=== PATIENT | male | born 2000 | race Two or more races ===

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

== ENCOUNTER 2021-01-18 18:11 | Emergency (ER) | payer MEDICAID, SELFPAY ==
[2021-01-18 18:58] VITALS: BP 119/58; PULSE 116; RESP 16; TEMP 36.9; O2SAT 100; BMI 16.9
--- NOTE | 2021-01-18 19:03 | ED_ITS ---
HPI - Wound/Laceration General Chief Complaint: Animal Bite Stated Complaint: finger lac Source: patient Mode of arrival: ambulatory Limitations: no limitations History of Present Illness HPI narrative: 20-year-old male presents with dog bite to the left 5th finger. His 3-month-old puppy bit his hand accidentally. Onset (ago): hour(s) (Within the hour of arrival) Extremity Location: left: hand (Fifth finger) Place: home Patient tetanus UTD: No Context: accidental Associated symptoms: none Related Data Previous Rx's Medication Instructions Recorded amoxicillin 875 mg-potassium 1 tab PO Q12H 10 Days #20 tab 01/18/21 clavulanate 125 mg tablet (Augmentin) Allergies Allergy/AdvReac Type Severity Reaction Status Date / Time No Known Allergies Allergy Verified 01/18/21 19:16 Review of Systems Review of Systems: Constitutional: No Fever, No Chills ENT/Mouth: No Ear Pain, No Hoarseness, No sore throat Eyes: No Eye Pain, No Swelling, No Redness, No Foreign Body Cardiovascular: No Chest Pain, No SOB Respiratory: No Cough, No Dyspnea Gastrointestinal: No Nausea, No Vomiting, No Diarrhea, No abdominal Pain Genitourinary: No Dysuria, No Hematuria Musculoskeletal: positive left 5th finger pain, No Myalgias, No Joint Swelling Skin: Positive finger laceration, No rash Neuro: No Weakness, No Numbness, No Paresthesias, No Loss of Consciousness, No Dizziness, No Headache Psych: No Anxiety/Panic, No Depression Heme/Lymph: no easy bruising, no Lymphadenopathy Endocrine: No Polyuria, No Polydipsia Yes all other systems are reviewed and are negative [facility] Past Medical History Attestation statement: The following information was validated with the patient. Source: old records reviewed Medical History No known health problems Social History Social History Advance Directives: No Advance Directives Information Provided: Yes Physical Exam Vital Signs: Vital Signs: Last Vital Signs Temp 98.4 F 01/18/21 18:58 Pulse 116 H 01/18/21 18:58 Resp 16 01/18/21 18:58 BP 119/58 L 01/18/21 18:58 Pulse Ox 100 01/18/21 18:58 BMI result Body Mass Index 16.9 Appearance: Alert. Oriented X3. No acute distress. Eyes: Pupils equal, round and reactive to light. ENT: Pharynx normal. Neck: Normal inspection. Neck supple. CVS: Normal heart rate and rhythm. Pulses normal. Respiratory: No respiratory distress. Breath sounds normal. Abdomen: Soft and nontender. Skin: Skin warm and dry. Normal skin color. Normal skin turgor. Extremities: Full range of motion and brisk capillary refill to all digits. 0.5 cm laceration to the pad of the 5th finger tip. Neuro: No motor deficit. No sensory deficit. Cranial nerves 2-12 intact. Course Course Course Narrative: 20-year-old male presents with a laceration to his 5th left finger from his 3-month-old puppy. Puppy has been properly vaccinated, and is not old enough for rabies series. Low likelihood of rabies contact at this time. Patient does not want rabies series. Laceration cleaned and dressed with topical antibiotic ointment and dry sterile dressing. Will give Augmentin and Tdap vaccine at this time. No further action is required patient patient does have full range of motion and brisk capillary refill to all digits. Patient verbalized understanding of and agrees to plan of care discharge home. MDM - Wound/Laceration Differential Diagnosis Differential diagnosis: Likely laceration Medical Records Attestation: I reviewed the patient's medical records. Discharge Plan Discharge Clinical Impression: Dog bite Patient Disposition: Home, Self-Care Instructions: Animal Bite (ED) Additional Instructions: You were evaluated for a dog bite. Your puppy has been properly vaccinated. Please take Augmentin antibiotics as directed. Please complete the entire course of medication. Thank you for choosing this emergency department for evaluation. Please follow-up with primary care physician as needed. Return to the emergency department for any new, concerning, or worsening symptoms. Prescriptions: New amoxicillin-pot clavulanate [Augmentin] 875-125 mg tablet 1 tab PO Q12H 10 Days Qty: 20 RF: 0 Interventions: ED Discharge Assessment Last Done: 01/18/21 20:20 Discharge Date/Time: 01/18/21 20:25
[2021-01-18] MEDS: Amoxicillin/Potassium Clav 875 MG TABLET PO (19:39)
[2021-01-18] MEDS: Diphth,Pertus(ACell),Tet Adult 0.5 ML SYRINGE IM (19:39)
--- NOTE | 2021-01-18 20:17 | PC.NURSE ---
PT LIVES WITH DOG AND THE DOG WILL BE WATCHED AT HOME FOR S/SX OF RABIES. DOG IS A PUPPY AND WAS PLAYFUL AND IS WELL WITH NO SIGN OF AGGRESSION OR SICKNESS AND DOES NOT GO OUTSIDE ON OWN. PT IS TOO YOUNG FOR RABIES VACCINE AT THIS TIME ANIMAL CONTROL REPORT FILLED AND FAXED.
== END 2021-01-18 20:25 | disposition home or self-care (01) ==
PROVIDERS: Emergency Provider Internal Medicine
DX: S61.217A Laceration without foreign body of left little finger without damage to nail, initial encounter (principal); W54.0XXA Bitten by dog, initial encounter; Y93.9 Activity, unspecified; Y92.009 Unspecified place in unspecified non-institutional (private) residence as the place of occurrence of the external cause; Y99.9 Unspecified external cause status
CPT/HCPCS: 90471; 90715; 99284

== ENCOUNTER 2021-04-02 16:49 | Emergency (ER) | payer MEDICAID, SELFPAY ==
--- NOTE | ~2021-04-02 | XR_ITS ---
EXAMINATION: XR CHEST CLINICAL INFORMATION: Fever COMPARISON: None TECHNIQUE: Frontal view of the chest was obtained. FINDINGS: No significant abnormality is noted involving the heart, lungs, mediastinum, bony thorax or soft tissues. XR/XR chest 1V IMPRESSION: Unremarkable examination.
--- NOTE | 2021-04-02 18:44 | ED.GENADULT ---
HPI - General Adult General Chief complaint: General Medical Stated complaint: fever/body aches/chills Time Seen by Provider: 04/02/21 18:31 Source: patient Mode of arrival: ambulatory Limitations: no limitations History of Present Illness HPI narrative: Patient comes to the emergency room of 1 day body aches, fever and chills. Patient denies nausea vomiting or diarrhea. Patient complaining of sore throat. Related Data Previous Rx's Medication Instructions Recorded amoxicillin 875 mg-potassium 1 tab PO Q12H 10 Days #20 tab 01/18/21 clavulanate 125 mg tablet (Augmentin) ibuprofen 600 mg tablet 600 mg PO TID PRN #20 tab 04/02/21 Allergies Allergy/AdvReac Type Severity Reaction Status Date / Time No Known Allergies Allergy Verified 01/18/21 19:16 Review of Systems Review of Systems: Insert review of Constitutional : No Weight loss, complaining of fever, chills, generalized malaise ENT/Mouth : No Hearing loss, No Ear Pain, No Nasal Congestion, No Sinus Pain, No Hoarseness, complaining of mild sore throat, No Rhinorrhea, No Swallowing Difficulty Eyes: No Eye Pain, No Swelling, No Redness, No Foreign Body, No Discharge, No Vision Changes Cardiovascular : No Chest Pain, No SOB, No Dyspnea on Exertion, No Orthopnea, No Edema, No Palpitations Respiratory : No Cough, No Sputum, No Wheezing, No Smoke Exposure, No Dyspnea Gastrointestinal : No Nausea, No Vomiting, No Diarrhea, No Constipation, No abdominal Pain, No Hematochezia, No Melena Genitourinary : no irregular bleeding, No Dysuria, No Urinary Frequency, No Hematuria, No Urinary Incontinence, No Urgency, No Flank Pain, No Urinary Flow Changes, No Hesitancy Musculoskeletal : No joint pain, No Myalgias, No Joint Swelling Skin : No Skin Lesions, No rash Neuro : No Weakness, No Numbness, No Paresthesias, No Loss of Consciousness, No Dizziness, No Headache Psych : No Anxiety/Panic, No Depression, No SI/HI/AH/VH, No Social Issues, Heme/Lymph: No Bruising, No Bleeding,No Lymphadenopathy Endocrine : No Polyuria, No Polydipsia, No Temperature Intolerance PMFSH Past Medical History Medical History No known health problems Social History Social History Advance Directives: No Advance Directives Information Provided: Yes Physical Exam ED Vital Signs: Vital Signs - 24 hr 04/02/21 19:11 04/02/21 19:45 Temperature 98.7 F 101.1 F H Pulse Rate 111 H 117 H Respiratory Rate 17 Blood Pressure 136/66 123/66 Pulse Oximetry 96 99 BMI result Body Mass Index 17.1 Const Other: Appearance: Alert. Oriented X3. No acute distress. Eyes: Pupils equal, round and reactive to light. ENT: Pharynx normal. No exudates, no oropharyngeal abscess is visualized Neck: Normal inspection. Neck supple. No lymph nodes noted. No crepitus CVS: Tachycardic, heart rate 110 Pulses normal. Normal S1 and S2 Respiratory: No respiratory distress. Breath sounds normal. No Wheezing. No rales Abdomen: Soft and nontender. No rigidity. No distention. good BS x4 Skin: Skin warm and dry. Normal skin color. Normal skin turgor. Extremities: No lower extremity edema. No lower extremity edema. No Lacerations. No Rash Neuro: Oriented X 3. No motor deficit. No sensory deficit. Moving all extermities. No slurred speech. Course Course Course Narrative: Patient was re-evaluated after a dose of ibuprofen. Patient remains tachycardic approximately 120 beats per minute. Patient will be receiving IV fluids, Tylenol. Patient tested negative for COVID, influenza and strep. Patient received IV fluids. Patient likely has viral syndrome. Medical Decision Making Lab Data Labs: Lab Results 04/02/21 04/02/21 04/02/21 Range/Units 19:44 19:44 19:44 COVID-19 ([facility]) Negative (Negative) COVID-19 Clin Com See Note Influenza Type A ([facility]) Negative (Negative) Influenza Type B ([facility]) Negative (Negative) Influenza A & B Note See Note S. pyogenes GrpA [facility] Negative (Negative) Discharge Plan Discharge Clinical Impression: Acute viral syndrome Patient Disposition: Home, Self-Care Instructions: Acute Nausea and Vomiting (ED), Viral Syndrome (ED) Additional Instructions: Please follow-up with your primary care physician tomorrow. If you have any worsening or new symptoms, please return to the emergency room or call 911 Prescriptions: New ibuprofen 600 mg tablet 600 mg PO TID PRN (Reason: fever or pain) Qty: 20 0RF No Action amoxicillin-pot clavulanate [Augmentin] 875-125 mg tablet 1 tab PO Q12H 10 Days Qty: 20 0RF
[2021-04-02 19:11] VITALS: BP 136/66; PULSE 111; TEMP 37.1; O2SAT 96
[2021-04-02 19:20] VITALS: BMI 17.1
[2021-04-02 19:45] VITALS: BP 123/66; PULSE 117; RESP 17; TEMP 38.4; O2SAT 99
[2021-04-02] MEDS: Ibuprofen 600 MG TABLET PO (19:52)
[2021-04-02 20:10] LABS: Strep A Nucleic Acid Negative (Negative)
[2021-04-02 20:14] LABS: COVID-19 Test Negative (Negative)
[2021-04-02 20:15] LABS: IDNOW Serial# 55D5AD1C; Influenza A Negative (Negative); Influenza B2 Negative (Negative)
[2021-04-02] MEDS: Acetaminophen 325 MG TABLET 650 MG PO (20:50)
[2021-04-02] MEDS: 0.9 % Sodium Chloride 1,000 ML 999 ML IVCONT (20:51)
[2021-04-02 21:43] VITALS: BP 110/69; PULSE 94; RESP 16; O2SAT 97
[2021-04-02 22:24] VITALS: TEMP 36.6
== END 2021-04-02 22:25 | disposition home or self-care (01) ==
PROVIDERS: Emergency Provider Emergency Medicine
DX: B34.9 Viral infection, unspecified (principal); R50.9 Fever, unspecified; M79.10 Myalgia, unspecified site; Z20.822 Contact with and (suspected) exposure to COVID-19; Z79.899 Other long term (current) drug therapy
CPT/HCPCS: 71045; 87502; 87635; 87651; 96360; 99284

== ENCOUNTER 2023-12-22 15:15 | Outpatient (REF) | payer MEDICAID, SELFPAY ==
[2023-12-23 08:21] LABS: HIV AB/AG Nonreactive (Nonreactive); HIV Num 1 0.14 S/CO (0.00-0.99); ~HepC Num1 0.57 S/CO (0.00-0.79); ~Hepatitis C Antibody Nonreactive (Nonreactive)
[2023-12-23 08:29] LABS: Syphilis Screen Nonreactive (Nonreactive)
== END 2023-12-22 15:16 | disposition home or self-care (01) ==
LOC: HO.CHCLDS 15:15
PROVIDERS: Visit Provider Internal Medicine
DX: N34.2 Other urethritis (principal)
CPT/HCPCS: 36415; 86780; 86803; 87389